=== PATIENT | female | born 1950 | race Hispanic/Latino ===

== ENCOUNTER → 2019-05-18 | Outpatient (CLI) | payer MEDICARE, OTHER ==
[~2019-05-18] MED LIST: HYDROCHLOROTHIA25 MG; LOSARTAN POTAS100 MG PO; METOPROLOL SUCC50 MG PO; SIMVASTATIN20 MG PO; TYLENOL PO
[2019-05-18 09:28] LABS: BLOOD UREA NITROGEN 14 mg/dL (7-26); BUN/CREATININE RATIO 20 (6-25); CREATININE, SERUM 0.71 mg/dL (0.57-1.11); EST GLOMERULAR FILTRATION RATE > 60 ML/MIN (60-)
--- NOTE | 2019-05-18 11:52 | Diagnostic Imaging Report ---
CT of the abdomen and pelvis History: Right-sided abdominal pain Comparison: None available. Technique: Multidetector CT scanning of the abdomen and pelvis was performed from the level of the lung bases to the inferior pubic ramus, with IV contrast. DOSE REDUCTION: The examination was performed according to departmental dose-optimization program which includes automated exposure control, adjustment of the mA and/or kV according to patient size and/or use of iterative reconstruction technique. Discussion: The lung bases demonstrate dependent atelectasis. The liver is diffusely hypoattenuating compatible with hepatic steatosis. Subcentimeter hypodensities in the right hepatic lobe are too small to characterize. The gallbladder is present nondistended. No radiopaque gallstones are identified. There is no intrahepatic or extrahepatic biliary dilatation. The spleen is within normal limits. Incidental note is made of a 1.0 cm accessory splenule. The bilateral adrenal glands are within normal limits. The pancreas is normal in attenuation. There is no pancreatic ductal dilatation. No peripancreatic inflammatory stranding is identified. The kidneys are normal in size and enhance symmetrically. There is no hydroureteronephrosis bilaterally. No kidney stones are identified. The stomach, small, and large bowel are nondistended. There is no evidence of obstruction. No bowel wall thickening is appreciated. There are no signs of appendicitis. There is no free intraperitoneal air or ascites. The abdominal aorta is of normal course and caliber. The uterus is surgically absent. The urinary bladder is within normal limits. No enlarged abdominal or retroperitoneal lymph nodes are identified. There are no acute osseous abnormalities. IMPRESSION: 1. No CT evidence of acute abdominal or pelvic pathology. 2. Hepatic steatosis. Subcentimeter hypodensities in the right hepatic lobe are too small to characterize but statistically represents cyst. 3. Status post hysterectomy. Signed by: Kash Amin MD on 05/18/2019 11:50 AM
== END ==
LOC: CT 08:26
PROVIDERS: ATTEND Internal Medicine Gastroenterology
DX: R10.9 Unspecified abdominal pain (principal)
CPT/HCPCS: 36415; 74177; 82565; 84520